=== PATIENT | female | born 2000 | race Caucasian/White ===

== ENCOUNTER 2021-03-23 15:14 | Emergency (ER) | payer OTHER ==
[~2021-03-23] VITALS: Ht 170.2 cm; Wt 60.0 kg
[2021-03-23 15:33] VITALS: BP 102/83
[2021-03-23 16:12] LABS: BACTERIA,URINE FEW /HPF (0-FEW); BILIRUBIN,URINE NEG (NEG); CLARITY,URINE CLEAR; COLOR,URINE YELLOW; GLUCOSE,URINE NEG (NEG); NITRITE,URINE NEG (NEG)
[2021-03-23 16:13] LABS: SQUAMOUS EPITHELIAL CELL,UR FEW /LPF
[2021-03-23] MEDS ORDERED: methylPREDNISolone SOD SUCC PF 125 MG/2 ML VIAL. IV ONE (16:15)
[2021-03-23] MEDS ORDERED: IV NORMAL SALINE 1,000ML 1,000 ML IV ONE (16:15)
[2021-03-23] MEDS ORDERED: FAMOTIDINE 20 MG/2 ML VIAL IVP ONE (16:15)
[2021-03-23] MEDS ORDERED: diphenhydrAMINE 50 MG/ML VIAL IVP ONE (16:15)
[2021-03-23] MEDS ORDERED: METH4TAB2 PO (17:23)
[2021-03-23] MEDS ORDERED: FAMO-63 PO (17:23)
[2021-03-23] MEDS ORDERED: DIPH25CA58 PO (17:23)
--- NOTE | 2021-03-23 17:23 | PHYS DOC ---
Past History Past Surgical History: No Surgical History (MARIE CRAMER APRN) Alcohol Use: None (MARIE CRAMER APRN) Adult General Chief Complaint Chief Complaint: SKIN PROBLEM HPI HPI Patient is a 20-year-old female presents to the emergency department complaining of a skin rash she noticed this Sunday at 5:30 AM when she woke up for school. Patient reports blotchy skin rash that itches was on her face, moved to her abdomen, is now on her back. Patient denies allergies to medications foods or other environmental products. Patient reports the only new item she used this weekend was dryer sheets, stating she has not used dryer sheets in the past. Patient reports taking control and Lexapro tablets only. Reports seeing Dr. Hernandez at the [facility] for primary care. Patient reports taking Benadryl at night with some relief however wakes up with hives again the next morning. Patient denies other physical complaints or physical concerns. (MARIE CRAMER APRN) Review of Systems Review of Systems 14 body systems of review of systems have been reviewed. See HPI for pertinent positives and negative responses, otherwise all other systems are negative, nonpertinent or noncontributory. Constitutional: Negative except as outlined in HPI above. Skin: Negative except as outlined in HPI above. Eyes: Negative except as outlined in HPI above. HENT: Negative except as outlined in HPI above. Respiratory: Negative except as outlined in HPI above. Cardiovascular: Negative except as outlined in HPI above. GI: Negative except as outlined in HPI above. : Negative except as outlined in HPI above. Musculoskeletal: Negative except as outlined in HPI above. Integument: Negative except as outlined in HPI above. Neurologic: Negative except as outlined in HPI above. Endocrine: Negative except as outlined in HPI above. Lymphatic: Negative except as outlined in HPI above. Psychiatric: Negative except as outlined in HPI above. (MARIE CRAMER APRN) Current Medications Current Medications Current Medications Medications (Trade) Dose Ordered Sig/Rudolph Start Time Stop Time Status Last Admin Dose Admin Diphenhydramine HCl (Benadryl) 25 mg 1X ONCE 03/23/21 16:15 03/23/21 16:27 DC 03/23/21 16:15 25 MG Famotidine (Pepcid Vial) 40 mg 1X ONCE 03/23/21 16:15 03/23/21 16:27 DC 03/23/21 16:15 40 MG Methylprednisolone Sodium Succinate (SOLU-Medrol 125MG VIAL) 125 mg 1X ONCE 03/23/21 16:15 03/23/21 16:27 DC 03/23/21 16:15 125 MG Sodium Chloride 1,000 ml @ 1,000 mls/hr 1X ONCE 03/23/21 16:15 03/23/21 17:14 DC 03/23/21 16:15 1,000 MLS/HR (MARIE CRAMER APRN) Allergies Allergies Allergies Coded Allergies Type Severity Reaction Last Updated Verified No Known Drug Allergies 03/23/21 No (MARIE CRAMER APRN) Physical Exam Physical Exam Constitutional: Well developed, well nourished, no acute distress, non-toxic appearance. 20-year-old female in no apparent distress. HENT: Normocephalic, atraumatic. Oropharynx moist, pink, no infectious process appreciated, no edema or oral swelling appreciated, patient speaking in normal voice tones. Eyes: Conjunctiva normal, no discharge. Neck: Normal range of motion, no stridor. Cardiovascular: No cyanosis appreciated, distal cap refill less than 2 seconds. Lungs & Thorax: Patient is in no respiratory distress, no audible adventitious lung sounds appreciated. Lung sounds clear to auscultate all lung green. Abdomen: Nontender, no abnormalities noted. Skin: Warm, dry, no erythema, no rash. Urticaria type skin rash to back and abdomen, extremities are spared, head and neck and face spared. Back: No tenderness, no deformities. Extremities: No tenderness, no cyanosis, no clubbing, ROM intact, no edema. Neurologic: Alert and oriented X 3, normal motor function, normal sensory function, no focal deficits noted. Psychologic: Affect normal, judgement normal, mood normal. (MARIE CRAMER APRN) Current Patient Data Vital Signs Vital Signs Date Time Temp Pulse Resp B/P (MAP) Pulse Ox O2 Delivery O2 Flow Rate FiO2 03/23/21 15:33 97.2 79 16 102/83 (89) 98 Room Air Lab Results Laboratory Tests Test 03/23/21 15:42 03/23/21 16:00 Urine Collection Type Unknown Urine Color Yellow Urine Clarity Clear Urine pH 6.0 Urine Specific [place] 1.025 Urine Protein Neg (NEG-TRACE) Urine Glucose (UA) Neg mg/dL (NEG) Urine Ketones (Stick) Neg mg/dL (NEG) Urine Blood Neg (NEG) Urine Nitrite Neg (NEG) Urine Bilirubin Neg (NEG) Urine Urobilinogen Dipstick 1.0 mg/dL (0.2 mg/dL) Urine Leukocyte Esterase Neg (NEG) Urine RBC 1-2 /HPF (0-2) Urine WBC 1-4 /HPF (0-4) Urine Squamous Epithelial Cells Few /LPF Urine Bacteria Few /HPF (0-FEW) POC Urine HCG, Qualitative hcg negative (Negative) (MARIE CRAMER APRN) EKG EKG [] (MARIE CRAMER APRN) Radiology/Procedures Radiology/Procedures [] (MARIE CRAMER APRN) Heart Score C/O Chest Pain: No Risk Factors: Risk Factors: DM, Current or recent (<one month) smoker, HTN, HLP, family history of CAD, obesity. Risk Scores: Risk Factors: DM, Current or recent (<one month) smoker, HTN, HLP, family history of CAD, obesity. (MARIE CRAMER APRN) Course & Med Decision Making Course & Med Decision Making Pertinent Labs and Imaging studies reviewed. (See chart for details) 20-year-old female, vital signs reviewed, presents to the emergency department concerning skin rash since this past Sunday. Physical examination concerning for contact dermatitis with acute urticaria. Will order IV steroid, Benadryl, Pepcid, 1 L normal saline, will reevaluate after period of time. After period of time, patient's hives rash has resolved, patient reports she no longer itches. Discussed with patient no longer using the new dryer sheet products, washing all items that she used this product with prior to coming in contact with bare skin. Continue taking Benadryl for itching and hives along with Pepcid, will prescribe Medrol Dosepak, patient is amenable to ED discharge planning. Discussed with patient if hives continue follow-up with primary care. Discussed with the patient all findings and diagnostic testing as well as the need to follow-up with their primary care provider for further evaluation and treatment or return to the ED if any new or worsening symptoms. Strict return precautions were also discussed at length, the patient voiced understanding and agreement with the discharge planning. The patient was nontoxic in appearance, in no apparent distress, and hemodynamically stable at the time of disposition. (MARIE CRAMER APRN) Dragon Disclaimer Dragon Disclaimer This electronic medical record was generated, in whole or in part, using a voice recognition dictation system. (MARIE CRAMER APRN) Departure Departure: Impression: Primary Impression: Acute urticaria Disposition: HOME / SELF CARE / HOMELESS Condition: GOOD Referrals: PCP,UNKNOWN (PCP) Patient Instructions: Hives Additional Instructions: You were seen today in the emergency department for skin rash. The skin rash appeared to be hives in nature. As we discussed this is most likely an allergic reaction to something you have come in contact with. After a detailed investigation, you you have disclose that you started using new dryer sheets. This may be the root cause of your itching and skin rash. I recommend stopping the dryer sheets and washing all clothing and bed linens that you have used the discharge sheets with. You were given Benadryl, Pepcid, and a steroid intr avenously today in the emergency department. This seems to have helped well with your hives reaction. As we discussed, I am prescribing you Pepcid to take twice a day for the next 7 days, I am also prescribing you a Medrol Dosepak, please take as directed until complete. Please follow-up with your primary care physician for ongoing hives problems, thank you for visiting our Emergency Department. It was a pleasure taking care of you today in the emergency department and we appreciate you trusting us with your care. If any additional problems come up don't hesitate to return to visit us. Please follow up with your primary care provider so they can plan additional care if needed and know about the problem that you had. If symptoms worsen come back to the Emergency Department. Any concerning symptoms that start such as chest pain, shortness of air, weakness or numbness on one side of the body, running high fevers or any other concerning symptoms return to the ER. Scripts Methylprednisolone (MEDROL) 4 Mg Tab.ds.pk 1 PKG PO UD for hives, #1 PKG 0 Refills Prov: MARIE CRAMER APRN 03/23/21 Famotidine (PEPCID) 20 Mg Tablet 20 MG PO BID for hives for 7 Days, #14 TAB 0 Refills Prov: MARIE CRAMER APRN 03/23/21 Diphenhydramine Hcl (BENADRYL) 25 Mg Capsule 1 CAP PO TID PRN PRN for ALLERGIES for 5 Days, #15 CAP 0 Refills You may take up to 3 times a day 8 hours apart as needed for hives and itching symptoms. Prov: MARIE CRAMER APRN 03/23/21 Attending Signature Attending Signature I have reviewed the PA/MULTI SHARE PROGRAM COORDINATOR's note and plan of care. I was available for consultation as needed during the patient's visit in the emergency department. I agree with the clinical impression, plan, and disposition. (MARIE HAMEED DO) MARIE CRAMER APRN Mar 23, 2021 17:23 MARIE HAMEED DO Mar 23, 2021 18:57
== END 2021-03-23 17:36 | disposition home or self-care (01) ==
LOC: ER 15:14
DX: L50.9 Urticaria, unspecified (principal)
CPT/HCPCS: 81001; 81025; 96361; 96374; 96375; 99284; J1200; J2930; J3490; J7030